=== PATIENT | male | born 1975 | race Caucasian/White ===

== ENCOUNTER 2018-05-17 13:15 | Inpatient (IN) ==
--- NOTE | 2018-05-17 13:52 | ED ---
HPI General Stated Complaint: Cold/Flu Symptoms Time Seen by Provider: 05/17/18 13:30 Source: patient Mode of arrival: EMS Limitations: other (Psychiatric condition) History of Present Illness MD complaint: Reports suicidal ideation Duration: constant History of same: Yes Relieving factors: none Exacerbating factors: none Context: Reports significant life stressor (He states that his mother has recently ) Treatments prior to arrival: Reports none Related Data Previous Rx's Medication Instructions Recorded benztropine 1 mg PO BID 30 Days #60 tab 05/04/18 famotidine 20 mg PO BID 30 Days #60 tab 05/04/18 haloperidol decanoate [Haldol 100 mg IM Q28D ml 05/04/18 Decanoate] hydroxyzine HCl 50 mg PO Q6H PRN #60 tab 05/04/18 Allergies Allergy/AdvReac Type Severity Reaction Status Date / Time chloral hydrate Allergy Severe Psychosis Verified 05/17/18 13:27 penicillin G Allergy Severe Rash, Verified 05/17/18 13:27 Generalized Review of Systems ROS: all other systems reviewed are negative [facility] Medical History Medical History Anxiety (Acute) Depression (Acute) Esophageal dilatation (Acute) Esophageal stricture (Acute) GERD (gastroesophageal reflux disease) (Acute) Schizophrenia, paranoid, chronic (Acute) Von Willebrand disease (Acute) Social History Social History Substance History: Active Abuse Second Hand Smoke Exposure: Yes Smoking Status: Current some day smoker Tobacco Type: Cigarettes How Often Do You Have a Drink Containing Alcohol: 2 to 4 times a month Recent Travel in [facility] [[email or web address] within the Last 8 Weeks: No Recent Out of Country Travel within the Last 8 Weeks: No Immunization History Tetanus Immunization: Unsure Exam Const General: cooperative, healthy appearing, comfortable, no acute distress and well developed Orientation: alert, awake and oriented x3 HENMT Head: normal to inspection, normocephalic and atraumatic Eyes Alignment and Position: alignment normal and position abnormal Conjunctivae: conjunctivae normal Sclera: sclerae normal EOM: EOM intact bilaterally Neck Neck: normal visual inspection and full ROM Chest Chest: normal inspection of the chest Resp Effort & Inspection: normal respiratory effort and able to speak in complete sentences Cardio Rate: regular rate Rhythm: regular rhythm Back/Spine/Pelvis Cervical Spine: cervical ROM normal Thoracic/Lumbar Spine: thoraco-lumbar ROM normal Skin General: no rashes or lesions noted, turgor normal and dry skin Neuro General: alert, awake, oriented x3, moves all extremities and CN's II-XI intact bilaterally Extrem General: normal to inspection and full ROM Psych Appearance: grossly normal Speech and Movement: speech and movement normal Mood: congruent mood Affect: sad Attitude: cooperative Thought Content: suicidality Course Initial Documented Vital Signs Temperature 98.3 F 05/17/18 13:27 Pulse Rate 96 H 05/17/18 13:27 Respiratory Rate 16 05/17/18 13:27 Blood Pressure 118/80 05/17/18 13:27 Pulse Oximetry 98 05/17/18 13:27 Last Documented Vital Signs Temperature 98.4 F 05/18/18 17:58 Pulse Rate 102 H 05/18/18 17:58 Respiratory Rate 18 05/18/18 17:58 Blood Pressure 137/80 05/18/18 17:58 Pulse Oximetry 98 05/18/18 17:58 Medical Decision Making [facility] Narrative Medical decision making narrative: This patient presented to us via [facility] with a chief complaint to the triage nurse of a sore throat but the chief complaint to me of suicidal ideation. This patient was just admitted to the psychiatric [facility] here at the hospital with similar complaints. He was discharged on May 04. I have ordered a medical screening exam. He will need to be seen by the psych screener. I am unable to determine if his suicidal ideation is real or if he is malingering. He is medically clear for psychiatric evaluation. Medical Screen Exam Complete: Yes Emergency Medical Condition: Yes Differential Diagnosis Differential Diagnosis: Differential diagnosis includes but is not limited to depression with suicidal gesture, suicide attempt, suicidal ideation, attention seeking behavior, malingering. Lab Data Lab results reviewed: Yes I reviewed the patient's lab results. Result diagrams: 05/17/18 13:45 05/17/18 13:45 Lab Results 05/17/18 05/17/18 05/17/18 Range/Units 13:45 13:45 14:00 WBC 11.6 H (4.0-11.0) th/mm3 RBC 5.37 (4.50-5.90) mil/mm3 Hgb 16.5 (13.0-17.0) gm/dL Hct 48.4 (39.0-51.0) % MCV 90.1 (80.0-100.0) fL MCH 30.7 (27.0-34.0) pg MCHC 34.1 (32.0-36.0) % RDW 15.1 (11.6-17.2) % Plt Count 228 D (150-450) th/mm3 MPV 9.5 (7.0-11.0) fL Neut % (Auto) 78.6 H (16.0-70.0) % Lymph % (Auto) 13.6 (9.0-44.0) % Noble % (Auto) 6.8 (0.0-8.0) % Eos % (Auto) 0.7 (0.0-4.0) % Baso % (Auto) 0.3 (0.0-2.0) % Neut # (Auto) 9.1 H (1.8-7.7) th/mm3 Lymph # (Auto) 1.6 (1.0-4.8) th/mm3 Noble # (Auto) 0.8 (0.0-0.9) th/mm3 Eos # (Auto) 0.1 (0.0-0.4) th/mm3 Baso # (Auto) 0.0 (0.0-0.2) th/mm3 WBC Differential . Differential Comment Auto diff final Sodium 140 (136-145) meq/L Potassium 3.4 L (3.5-5.1) meq/L Chloride 106 (98-107) meq/L Carbon Dioxide 26.9 (21.0-32.0) meq/L Anion Gap 7 (5-15) meq/L BUN 12 (7-18) mg/dL Creatinine 0.88 (0.60-1.30) mg/dL Estimated GFR Greater than 89 (>89) mL/min Random Glucose 77 (74-106) mg/dL Calcium 8.7 (8.5-10.1) mg/dL Magnesium 2.0 (1.5-2.5) mg/dL Total Bilirubin 0.6 (0.2-1.0) mg/dL AST 18 (15-37) U/L ALT 16 (12-78) U/L Alkaline Phosphatase 161 H (45-117) U/L Total Protein 7.7 (6.4-8.2) g/dL Albumin 3.8 (3.4-5.0) g/dL TSH 0.474 (0.358-3.740) uIU/mL Urine Opiates Screen Neg (Neg) Ur Barbiturates Screen Neg (Neg) Ur Amphetamines Screen Neg (Neg) U Benzodiazepines Scrn Neg (Neg) Urine Cocaine Screen Pos H (Neg) U Cannabinoids Screen Pos H (Neg) Serum Alcohol Less than 3 (0-5) mg/dL Discharge Plan Discharge Disposition Patient Disposition: ED Admit(ED Internal Use Only) Discharge Order Discharge Orders: ED Use Only Admit Order (Routine); Ordered 05/18/18 Ordered By: Jan Miarnda Discharge Details Diagnosis: Medical clearance for psychiatric admission Physicians Team ED Provider: Anni Claire Primary Care Provider: KAREN, Attending Provider: Grayson Harley Discharge Interventions Interventions: Vital Signs Last Done: 05/18/18 17:58 Status ED Status: Admitted Patient
[2018-05-17 14:19] LABS: Baso % (Auto) 0.3 % (0.0-2.0); Eos # (Auto) 0.1 th/mm3 (0.0-0.4); Eos % (Auto) 0.7 % (0.0-4.0); Hematocrit 48.4 % (39.0-51.0); Hemoglobin 16.5 gm/dL (13.0-17.0); Lymph # (Auto) 1.6 th/mm3 (1.0-4.8); Lymph % (Auto) 13.6 % (9.0-44.0); Mean Corpuscular HGB Conc 34.1 % (32.0-36.0); Mean Corpuscular Hemoglobin 30.7 pg (27.0-34.0); Mean Corpuscular Volume 90.1 fL (80.0-100.0); Mean Platelet Volume 9.5 fL (7.0-11.0); Mono # (Auto) 0.8 th/mm3 (0.0-0.9); Mono % (Auto) 6.8 % (0.0-8.0); Neut # (Auto) 9.1 th/mm3 (1.8-7.7); Neut % (Auto) 78.6 % (16.0-70.0); Platelet Count 228 th/mm3 (150-450); Red Blood Count 5.37 mil/mm3 (4.50-5.90); Red Cell Distribution Width 15.1 % (11.6-17.2); White Blood Count 11.6 th/mm3 (4.0-11.0)
[2018-05-17 14:41] LABS: Albumin 3.8 g/dL (3.4-5.0); Anion Gap 7 meq/L (5-15); Aspartate Aminotransferase 18 U/L (15-37); Blood Urea Nitrogen 12 mg/dL (7-18); Calcium 8.7 mg/dL (8.5-10.1); Carbon Dioxide 26.9 meq/L (21.0-32.0); Chloride 106 meq/L (98-107); Glomerular Filtration Rate Greater Than 89 mL/min (>89); Glucose,Random 77 mg/dL (74-106); Potassium 3.4 meq/L (3.5-5.1); Sodium 140 meq/L (136-145)
[2018-05-17 14:42] LABS: Alanine Aminotransferase 16 U/L (12-78)
[2018-05-17 14:46] LABS: Amphetamine Screen,Urine Neg (Neg); Barbiturate Screen,Urine Neg (Neg); Cannabinoid Screen,Urine Pos (Neg); Cocaine Screen,Urine Pos (Neg)
[2018-05-17 14:47] LABS: Opiate Screen,Urine Neg (Neg)
[2018-05-17 14:52] LABS: Alkaline Phosphatase 161 U/L (45-117); Thyroid Stimulating Hormone 0.474 uIU/mL (0.358-3.740); Total Protein 7.7 g/dL (6.4-8.2)
--- NOTE | 2018-05-18 12:46 | ED ---
HPI - Psych - General Source: patient Mode of arrival: EMS Limitations: no limitations - History of Present Illness MD complaint: suicidal ideation Duration: constant History of same: Yes Relieving factors: none Exacerbating factors: none Context: not taking psychiatric medications Associated psychiatric symptoms: depression, suicidal ideation, auditory hallucinations, visual hallucinations Associated symptoms: denies other symptoms Treatments prior to arrival: none If self harm: admits thoughts of self harm - General Stated Complaint: Cold/Flu Symptoms Time Seen by Provider: 05/17/18 13:30 - History of Present Illness HPI Narrative: The patient is a 42 years old white male who 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 The patient came to the ED and made threats of killing himself causing him to be Guido acted. This 42 years old male communicates in a childlike manner and he repeatedly made threats that he is going to kill himself by running in front of a moving car if he was sent home. Patient stated that his caregiver and mother 2 months ago and that he still grieving her . He stated that he does not like his home anymore because there are many other persons living there now and he does not get along well with them. The patient report that he was treated for paranoid schizophrenia, anxiety and he was prescribed psychotropic medications. Patient appears to be a poor historian and often times he could not give a clear account of himself or of where he was living. The patient often gets agitated and threatening to harm himself repeatedly but no suicidal gestures was observed. He reported auditory and visual hallucination but often times it appears that he is malingering. Patient's urine toxicology is positive for cocaine and marijuana. He denies chest pain or any other somatic symptoms. ( Jan Miranda) - Related Data Previous Rx's Medication Instructions Recorded benztropine 1 mg PO BID 30 Days #60 tab 05/04/18 famotidine 20 mg PO BID 30 Days #60 tab 05/04/18 haloperidol decanoate [Haldol 100 mg IM Q28D ml 05/04/18 Decanoate] hydroxyzine HCl 50 mg PO Q6H PRN #60 tab 05/04/18 Allergies Allergy/AdvReac Type Severity Reaction Status Date / Time chloral hydrate Allergy Severe Psychosis Verified 05/17/18 13:27 penicillin G Allergy Severe Rash, Verified 05/17/18 13:27 Generalized PMFSH - History History Provided By: Patient - Medical History Medical History: Medical History (Last Reviewed 05/17/18 @ 13:50 by Anni Claire) Anxiety Depression Esophageal dilatation Esophageal stricture GERD (gastroesophageal reflux disease) Schizophrenia, paranoid, chronic Von Willebrand disease - Tobacco History Second Hand Smoke Exposure: Yes Tobacco Use In Past 30 Days: Yes Smoking Status: Current some day smoker Tobacco Type: Cigarettes - Alcohol History How Often Do You Have a Drink Containing Alcohol: 2 to 4 times a month - Substance Use History Substance History: Active Abuse - Substance Use Type Marijuana Status: Active Route Used: Inhalation Alcohol Status: Active Route Used: By Mouth Frequency: OCCASIONALLY - Travel History Recent Travel in the [place] Within the Last 8 Weeks: No Recent Travel Out of the Country Within the Last 8 Weeks: No - Immunization History Tetanus Immunization: Unsure Psychiatric History - Psychiatric History Psychiatric Treatment History: History of Psychiatric Treatment, History Substance Abuse Treatment, History of Hospitalization in a Psychiatric Facility History of Inpatient Treatment: No Firearms in Home: No - Legal History Unable to verify (Jan Miranda) - Family Psychiatric History Unable to verify (Jan Miranda) Physical Exam - General Limitations: other (Psychiatric condition) Mental Status Examination Appearance: Appropriate Consciousness: Alert Orientation: x4 Motor Activity: Normal gait Speech: Unremarkable Language: Adequate Fund of Knowledge: Poor Attention and Concentration: Adequate Memory: Unremarkable Mood: Anxious, Irritable Affect: Irritable, Sad, Anxious Thought Process & Associations: Intact, Logical, Tangential Thought Content: Appropriate, Hallucinations Hallucination Type: Auditory Delusion Type: None Suicidal Plan: Yes (Plans to walk in front of a movi) Suicidal Intention: Yes Homicidal Ideation: No Homicidal Plan: No Homicidal Intention: No Insight: Poor Judgment: Impulsive Initial Documented Vital Signs Temperature 98.3 F 05/17/18 13:27 Pulse Rate 96 H 05/17/18 13:27 Respiratory Rate 16 05/17/18 13:27 Blood Pressure 118/80 05/17/18 13:27 Pulse Oximetry 98 05/17/18 13:27 Last Documented Vital Signs Temperature 98.4 F 05/18/18 17:58 Pulse Rate 102 H 05/18/18 17:58 Respiratory Rate 18 05/18/18 17:58 Blood Pressure 137/80 05/18/18 17:58 Pulse Oximetry 98 05/18/18 17:58 MDM - Psych - Diagnosis (1) Acute adjustment disorder Code(s): F43.20 - Adjustment disorder, unspecified Status: Acute (2) Acute adjustment disorder Code(s): F43.20 - Adjustment disorder, unspecified Status: Acute - Lab Data Result diagrams: 05/17/18 13:45 05/17/18 13:45 - [facility] Narrative Medical decision making narrative: Patient repeatedly voiced that he have thoughts of killing himself and that he is thinking about running out in front a moving car. He reported that he had one suicidal attempt about 10 years ago. This patient appears to to have mild mental retardation and his mother was caring for him. Patient is currently receiving Social Security disability benefits. According to patient his mother 2 months ago and is still grieving her . He stated that there are many people living at the house now some of them are relatives but he does not get along well with them, he is adamant that he does not want to go back living there. He said he prefers to stay at this hospital because this nice to hear that his home. Presently the nephrology social worker on this unit is working up his case to access what services are available to him in the community. His father who lives out of state was contacted by the nephrology social worker and he is making contact with [employer] and crm also. Patient is also referred to to this ED case management team. The fact that patient repeatedly made a threats to kill himself by running in front of a moving car if he is released. Given the present mental status of this patient and his cognitive functioning it appears unsafe to release this patient. Dr. Harley was consulted with and he agreed to have this patient admitted to the inpatient unit. (Jan Miranda) - Lab Data Lab Results 05/17/18 05/17/18 05/17/18 Range/Units 13:45 13:45 14:00 WBC 11.6 H (4.0-11.0) th/mm3 RBC 5.37 (4.50-5.90) mil/mm3 Hgb 16.5 (13.0-17.0) gm/dL Hct 48.4 (39.0-51.0) % MCV 90.1 (80.0-100.0) fL MCH 30.7 (27.0-34.0) pg MCHC 34.1 (32.0-36.0) % RDW 15.1 (11.6-17.2) % Plt Count 228 D (150-450) th/mm3 MPV 9.5 (7.0-11.0) fL Neut % (Auto) 78.6 H (16.0-70.0) % Lymph % (Auto) 13.6 (9.0-44.0) % [place] % (Auto) 6.8 (0.0-8.0) % Eos % (Auto) 0.7 (0.0-4.0) % Baso % (Auto) 0.3 (0.0-2.0) % Neut # (Auto) 9.1 H (1.8-7.7) th/mm3 Lymph # (Auto) 1.6 (1.0-4.8) th/mm3 [place] # (Auto) 0.8 (0.0-0.9) th/mm3 Eos # (Auto) 0.1 (0.0-0.4) th/mm3 Baso # (Auto) 0.0 (0.0-0.2) th/mm3 WBC Differential . Differential Comment Auto diff final Sodium 140 (136-145) meq/L Potassium 3.4 L (3.5-5.1) meq/L Chloride 106 (98-107) meq/L Carbon Dioxide 26.9 (21.0-32.0) meq/L Anion Gap 7 (5-15) meq/L BUN 12 (7-18) mg/dL Creatinine 0.88 (0.60-1.30) mg/dL Estimated GFR Greater than 89 (>89) mL/min Random Glucose 77 (74-106) mg/dL Calcium 8.7 (8.5-10.1) mg/dL Magnesium 2.0 (1.5-2.5) mg/dL Total Bilirubin 0.6 (0.2-1.0) mg/dL AST 18 (15-37) U/L ALT 16 (12-78) U/L Alkaline Phosphatase 161 H (45-117) U/L Total Protein 7.7 (6.4-8.2) g/dL Albumin 3.8 (3.4-5.0) g/dL TSH 0.474 (0.358-3.740) uIU/mL Urine Opiates Screen Neg (Neg) Ur Barbiturates Screen Neg (Neg) Ur Amphetamines Screen Neg (Neg) U Benzodiazepines Scrn Neg (Neg) Urine Cocaine Screen Pos H (Neg) U Cannabinoids Screen Pos H (Neg) Serum Alcohol Less than 3 (0-5) mg/dL
[2018-05-18] MEDS: Senna/Docusate Sodium 8.6/50 MG Tablet PO SCH (20:41)
[2018-05-18] MEDS: Aluminum/Magnesium/Simethacone Susp 30 ML UDC PO PRN (23:06)
[2018-05-19] MEDS: Senna/Docusate Sodium 8.6/50 MG Tablet PO SCH ×2 (08:12→21:57)
[2018-05-19] MEDS ORDERED: QUEtiapine 100 MG Tablet PO SCH (09:00)
[2018-05-19] MEDS: Famotidine 20 MG Tablet PO SCH ×2 (11:11→21:15)
--- NOTE | 2018-05-19 11:46 | P.HPPSY ---
Provisional Diagnosis Admission Date: May 18, 2018 17:54 [place] I.: Schizoaffective disorder depressive type Competence Certification of Person's Competence To Provide Express and Informed Consent I have personally examined Santi Camacho, a person being served at [facility] on, May 19, 2018 1145. Express and informed consent means consent voluntarily given in writing, by a competent person, after sufficient explanation and disclosure of the subject matter involved to enable the person to make a knowing and willful decision without any element of force, fraud, deceit, duress, or other form of constraint or coercion. This person is 18 years of age or older, is not now known to be incompetent to consent to treatment with a guardian advocate, and does not have a health care surrogate or proxy currently making medical treatment decisions. I have found this person to be one of the following: [xxx] Competent to provide express and informed consent, as defined above, for voluntary admission to this facility and is competent to provide express and informed consent for treatment. He/she has the consistent capacity to make well reasoned, willful, and knowing decisions concerning his or her medical or mental health treatment. The person fully and consistently understands the purpose of the admission for examination/placement and is fully capable of personally exercising all rights assured [place] Incompetent to provide express and informed consent to voluntary admission, and this is incompetent to provide express and informed consent to treatment. The person must be transferred to involuntary status and a petition for a guardian advocate filed with the Circuit Court. [] Refusing to provide express and informed consent to voluntary admission but is competent to provide express and informed consent for treatment. The person must be discharged or transferred to involuntary status. Form shall be completed within 24 hours of a person's arrival at the receiving facility and filed in the clinical record of each person: 1. Admitted on a voluntary basis 2. Permitted to provide express and informed consent to his/her own treatment 3. Allowed to transfer from involuntary to voluntary status 4. Prior to permitting a person to consent to his or her own treatment after having been previously found incompetent to consent to treatment. History of Present Illness Capacity: Has capacity Chief Complaint: Suicidal threats History of Present Illness: The patient is a 42 years old white male who 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 The patient came to the ED and made threats of killing himself causing him to be Guido acted...he repeatedly made threats that he is going to kill himself by running in front of a moving car if he was sent home. Patient stated that his caregiver and mother 2 months ago and that he still grieving her . He stated that he does not like his home anymore because there are many other persons living there now and he does not get along well with them. The patient report that he was treated for paranoid schizophrenia, anxiety and he was prescribed psychotropic medications. Patient appears to be a poor historian and often times he could not give a clear account of himself or of where he was living. The patient often gets agitated and threatening to harm himself repeatedly but no suicidal gestures was observed. He reported auditory and visual hallucination but often times it appears that he is malingering. Patient's urine toxicology is positive for cocaine and marijuana. He denies chest pain or any other somatic symptoms. The patient had been discharged from [facility] unit approximately 2 weeks ago and his discharge medications included Cogentin 1 mg take 1 tablet by mouth twice a day #60 refill 0, Atarax 50 mg take 1 by mouth up to every 8 hours as needed for anxiety or insomnia #60 refill 0, famotidine 20 mg twice a day #60 refill 0, Haldol decanoate 100 mg IM injections every 28 days with next dose due June 01, 2018. Patient admits to nonadherence with his oral medications and given his continued threats of suicide he was admitted to the psychiatric unit but under a voluntary status. Patient was seen this morning at bedside where he had returned after breakfast. He is complaining of fatigue as well as general body aches and requests continued bedrest for today. The patient is aware from previous admission the policy that he must be out of his room and in the milieu during the day with unless he has a doctor's order to remain on bedrest. Patient expressed sincere motivation to cooperate with unit rules and recommended treatment as he believes he was doing well prior to his discharge but the stress of returning to home where he did not get along with the people and it did not have running water or electricity was overwhelming for him. Patient does admit to a depressed mood that has worsened over the last 2 weeks and after discussion of risk benefits side effects alternatives he chooses to restart his previous antidepressant which was Prozac. - Inpatient Certification I certify that the inpatient services were ordered in accordance with Medicare regulations governing the order. This includes certification that hospital inpatient services are reasonable and necessary and in the case of services not specified as inpatient-only under 42 CFR 419.22(n), that they are appropriately provided as inpatient services in accordance to with the 2-midnight benchmark under 43 CFR 412.3(e) I certify that inpatient psychiatric hospital services are medically necessary. Evaluation and treatment and/or diagnostic testing are expected to improve the patient's condition. The patient needs on a daily basis, active treatment furnished directly by or requiring the supervision of inpatient psychiatric facility personnel. Estimated Total Length of Stay (Days): 7 Plans for Post Hospital Care: Home [facility] - History History Provided By: Patient - Medical History Medical History: Medical History (Last Reviewed 05/17/18 @ 13:50 by Anni Claire) Anxiety Depression Esophageal dilatation Esophageal stricture GERD (gastroesophageal reflux disease) Schizophrenia, paranoid, chronic Von Willebrand disease - Social History I have reviewed the patient's Social History: Yes - Tobacco History Second Hand Smoke Exposure: No Tobacco Use In Past 30 Days: Yes Smoking Status: Current every day smoker Tobacco Type: Cigarettes - Alcohol History How Often Do You Have a Drink Containing Alcohol: 2 to 4 times a month - Substance Use History Substance History: Active Abuse - Substance Use Type Marijuana Type: denies but uds is positive Status: Active Route Used: Inhalation Alcohol Status: Active Route Used: By Mouth Frequency: twice a month Reason for Use: Fit In Crack/Cocaine Type: denies but uds is positive Status: Active Route Used: By Mouth - Travel History Recent Travel in the [place] Within the Last 8 Weeks: No Recent Travel Out of the Country Within the Last 8 Weeks: No - Immunization History Tetanus Immunization: Unsure Medications and Allergies Active Medications: Active Medications Al Hydrox/Mg Hydrox/Simethicone (Mag-Al Plus Susp Liq) 30 ml PO Q6H PRN PRN Reason: DYSPEPSIA Last Admin: 05/18/18 23:06 Dose: 30 ml Al Hydroxide/Mg Hydroxide (Milk Of Magnesia Liq) 30 ml PO Q12H PRN PRN Reason: Mild Constipation Benztropine Mesylate (Cogentin) 1 mg PO BID DEBBIE Famotidine (Pepcid) 20 mg PO BID COUNT INCLUDES THE [facility] Last Admin: 05/19/18 11:11 Dose: 20 mg Fluoxetine HCl (Prozac) 20 mg PO DAILY COUNT INCLUDES THE [facility] Hydroxyzine HCl (Atarax) 50 mg PO Q6H PRN PRN Reason: Anxiety or insomnia Senna/Docusate Sodium (Veronique-Colace) 1 tab PO BID COUNT INCLUDES THE [facility] Last Admin: 05/19/18 08:12 Dose: Not Given Allergies Allergy/AdvReac Type Severity Reaction Status Date / Time chloral hydrate Allergy Severe Psychosis Verified 05/17/18 13:27 penicillin G Allergy Severe Rash, Verified 05/17/18 13:27 Generalized Results - Labs CBC & Chem 7: 05/17/18 13:45 05/17/18 13:45 Exam Vital signs: Vital Signs 05/18/18 12:47 05/18/18 17:58 05/18/18 19:35 Temperature 98.6 F 98.4 F 99.1 F Pulse Rate 106 H 102 H 96 H Respiratory Rate 18 18 18 Blood Pressure 128/81 137/80 138/88 Pulse Oximetry 97 98 96 05/19/18 05:45 Temperature 98.3 F Pulse Rate 65 Respiratory Rate 14 Blood Pressure 110/68 Pulse Oximetry 95 Intake & Output 05/18/18 05/19/18 05/19/18 18:59 06:59 18:59 Weight 61.1 kg Other: Weight On Admission 61.1 kg Mental Status Examination Appearance: Appropriate Consciousness: Alert Orientation: x4 Motor Activity: Normal gait Speech: Unremarkable Language: Adequate Fund of Knowledge: Poor Attention and Concentration: Adequate Memory: Unremarkable Mood: Anxious, Irritable Affect: Irritable, Sad, Anxious Thought Process & Associations: Intact, Logical, Tangential Thought Content: Appropriate Hallucination Type: None (Denies any this morning) Delusion Type: None Suicidal Ideation: Yes (Passive) Homicidal Ideation: No Homicidal Plan: No Homicidal Intention: No Insight: Poor Judgment: Impulsive Assessment and Plan - Assessment (1) Schizoaffective disorder, depressive type Code(s): F25.1 - Schizoaffective disorder, depressive type Status: Acute (2) Cocaine abuse Code(s): F14.10 - Cocaine abuse, uncomplicated Status: Acute - Plan Plan: 1. Continue with admission to inpatient psychiatry at [facility]; voluntary /competent legal status. 2. Routine unit precautions. 3. Comfort medications ordered for as needed treatment of constipation, heartburn, diarrhea, and mild pain. 4. Hydroxyzine 50mg po q6H prn anxiety/insomnia. 5. Restart Cogentin 1 mg twice a day. 6. Anticipate subsequent Haldol decanoate shot to be given as planned at the end of the month. Will consider oral Haldol if symptoms of psychosis return during this admission. 7. Start famotidine 20 mg twice a day for complaints of gastroesophageal reflux. 8. Start Ensure supplements with each meal. 9. Patient will participate in the unit programming to include group therapies , milieu therapy and recreational therapies. 10. Discharge planning: Unit director social welfare will assist patient and finding safer and more supportive living environment but the patient currently is refusing consideration for a substance use treatment program. 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 The patient is expressing a strong motivation to for psychiatric admission and willingness to cooperate with treatment and indicating an understanding of the risk benefits and side effects of these treatments therefore he will be restarted on his previous discharge medications and Prozac will be restarted as well as this has been an effective treatment for his mood and anxiety in the past.
[2018-05-19] MEDS: LORazepam 1 MG Tablet PO PRN (14:33)
[2018-05-20] MEDS: Senna/Docusate Sodium 8.6/50 MG Tablet PO SCH ×2 (08:15→20:28)
[2018-05-20] MEDS: Famotidine 20 MG Tablet PO SCH ×2 (08:16→20:28)
[2018-05-20] MEDS: FLUoxetine 20 MG Capsule PO SCH (08:16)
--- NOTE | 2018-05-20 11:55 | P.PNPSY ---
Subjective Chief Complaint: Suicidal threats Remarks: Patient seen for follow-up, chart reviewed, patient discussed with nursing staff ; we reviewed the patient's mood, thoughts, and behaviors from overnight and this morning. Nurse reports the patient slept 5 hours overnight. But he has been napping throughout the day. He also has been going to groups intermittently. He had an episode of vomiting overnight which was attributed to increased anxiety as well as coughing. Patient's anxiety was not relieved with Atarax and he was given Ativan for severe anxiety with good effect. Nurse reports the patient is complained of auditory hallucinations. Patient was seen at bedside after breakfast where he had return for a nap. Patient was easy to awaken. He reports "I am not doing well I want to kill myself." Patient was asked about active suicidal ideations or intent while in the hospital and he denies and reports having thoughts that if he were to be discharged she would jump in front of a car. We discussed her treatment plan and he was provided empathic support and he expressed feeling more reassured that he will get the help he needs prior to being discharged. On further clarification with his auditory hallucinations, the patient continues to endorse them as his own inner voice but the thoughts are sometimes intrusive and ego-dystonic and definitely cause him anxiety and sadness. Mental Status Examination Appearance: Appropriate Consciousness: Alert Orientation: x4 Motor Activity: Normal gait Speech: Unremarkable Language: Adequate Fund of Knowledge: Poor Attention and Concentration: Adequate Memory: Unremarkable Mood: Anxious, Irritable Affect: Irritable, Sad, Anxious Thought Process & Associations: Intact, Logical Thought Content: Appropriate, Obsessions Hallucination Type: None (Denies any this morning) Delusion Type: None Suicidal Ideation: Yes (Passive) Suicidal Plan: Yes (Plans to walk in front of a movi) Suicidal Intention: No Homicidal Ideation: No Homicidal Plan: No Homicidal Intention: No Insight: Poor Judgment: Impulsive Assessment and Plan - Assessment (1) Schizoaffective disorder, depressive type Code(s): F25.1 - Schizoaffective disorder, depressive type Status: Acute (2) Cocaine abuse Code(s): F14.10 - Cocaine abuse, uncomplicated Status: Acute - Plan Plan: 1. Continue with admission to inpatient psychiatry at [facility]; voluntary /competent legal status. 2. Routine unit precautions. 3. Comfort medications ordered for as needed treatment of constipation, heartburn, diarrhea, and mild pain. 4. Hydroxyzine 50mg po q6H prn anxiety/insomnia. 5. Restart Cogentin 1 mg twice a day. 6. Anticipate subsequent Haldol decanoate shot to be given as planned at the end of the month. Will consider oral Haldol if symptoms of psychosis return during this admission. 7. Start famotidine 20 mg twice a day for complaints of gastroesophageal reflux. 8. Start Ensure supplements with each meal. 9. Patient will participate in the unit programming to include group therapies , milieu therapy and recreational therapies. 10. Discharge planning: Unit family welfare social work professor will assist patient and finding safer and more supportive living environment but the patient currently is refusing consideration for a substance use treatment program. Estimated LOS: 7 days May 20, 2018: Unsatisfactory response to treatment; the patient continues to complain of suicidal ideations with plan if he were to be discharged and he continues to express internal torment by intrusive thoughts or obsessions. The patient was given a Haldol decanoate shot approximately 2 weeks ago but his recent use of cocaine probably exacerbated his worsening mood and thoughts therefore adjunctive treatment with additional Haldol is recommended in addition to the restart of his antidepressant. Continue inpatient psychiatric treatment stabilization, voluntary status. Continue Prozac 20 mg a day for treatment of anxiety and depression. Continue Atarax and Ativan as needed for mild to severe anxiety. Add Haldol 2 mg twice a day for adjunctive treatment of mood and thought disorder. Start guanfacine 600 mg ER twice a day for congestion length of treatment 2 days then discontinue. Start Tessalon Perles 100 mg 3 times a day as needed for throat irritation and cough. Discharge planning: The patient has indicated that homelessness is a major risk factor for his suicidal behavior therefore this will need to be mitigated prior to discharge. Justification for Continued Inpatient Stay: Patient remains an elevated risk for self-harm by self neglect and self injury by walking in front of traffic and therefore will require further inpatient stabilization and preparation of a safe discharge plan. Moving patient to a less restrictive environment at this time may result in decompensation.
[2018-05-20] MEDS: guaiFENesin 600 MG ER Tablet PO SCH ×2 (13:25→20:28)
[2018-05-20] MEDS: Haloperidol 5 MG Tablet PO SCH ×2 (14:16→20:27)
[2018-05-20] MEDS: Benzonatate 100 MG Capsule PO PRN (16:21)
[2018-05-21] MEDS: Benzonatate 100 MG Capsule PO PRN (08:16)
[2018-05-21] MEDS: Haloperidol 5 MG Tablet PO SCH ×2 (08:16→21:03)
[2018-05-21] MEDS: guaiFENesin 600 MG ER Tablet PO SCH (08:17)
[2018-05-21] MEDS: Famotidine 20 MG Tablet PO SCH ×2 (08:17→21:03)
[2018-05-21] MEDS: FLUoxetine 20 MG Capsule PO SCH (08:17)
[2018-05-21] MEDS: Senna/Docusate Sodium 8.6/50 MG Tablet PO SCH ×2 (08:17→21:02)
--- NOTE | 2018-05-21 11:56 | P.PNPSY ---
Subjective Chief Complaint: Suicidal threats Remarks: Patient seen for follow-up, chart reviewed, patient discussed with nursing staff ; we reviewed the patient's mood, thoughts, and behaviors from overnight and this morning. Nurse reports the patient was restless overnight related to coughing and one episode of vomitus. He seemed to get about 5 hours of rest. He has been med compliant and denied active suicidal or homicidal ideations with the nurses. Patient seen at bedside after breakfast where he was sleeping and difficult to awake. Provider returned for lunch and the patient was able to wake up and discuss his care. He tells the provider "I still want to kill myself." He denies any active plans and is willing to contract for safety. He complains of general malaise associated with his continued cough and complaints of feeling his congestion in his chest. Patient expressed concerns about being discharged to the streets feeling sick and suicidal and he was reassured that we will continue to stabilize as an inpatient. He denies improvement in mood or anxiety since the addition of Haldol yesterday but he also denies any side effects of worsening of his condition. Mental Status Examination Appearance: Appropriate Consciousness: Alert Orientation: x4 Motor Activity: Normal gait Speech: Unremarkable Language: Adequate Fund of Knowledge: Poor Attention and Concentration: Adequate Memory: Unremarkable Mood: Anxious, Irritable Affect: Irritable, Sad, Anxious Thought Process & Associations: Intact, Logical Thought Content: Appropriate, Obsessions (He describes intrusive thoughts that are irrational and illogical) Hallucination Type: None (Denies any this morning) Delusion Type: None Suicidal Ideation: Yes (Passive) Suicidal Plan: Yes (Plans to walk in front of a movi) Suicidal Intention: No Homicidal Ideation: No Homicidal Plan: No Homicidal Intention: No Insight: Poor Judgment: Impulsive Assessment and Plan - Assessment (1) Schizoaffective disorder, depressive type Code(s): F25.1 - Schizoaffective disorder, depressive type Status: Acute (2) Cocaine abuse Code(s): F14.10 - Cocaine abuse, uncomplicated Status: Acute - Plan Plan: 1. Continue with admission to inpatient psychiatry at [facility]; voluntary /competent legal status. 2. Routine unit precautions. 3. Comfort medications ordered for as needed treatment of constipation, heartburn, diarrhea, and mild pain. 4. Hydroxyzine 50mg po q6H prn anxiety/insomnia. 5. Restart Cogentin 1 mg twice a day. 6. Anticipate subsequent Haldol decanoate shot to be given as planned at the end of the month. Will consider oral Haldol if symptoms of psychosis return during this admission. 7. Start famotidine 20 mg twice a day for complaints of gastroesophageal reflux. 8. Start Ensure supplements with each meal. 9. Patient will participate in the unit programming to include group therapies , milieu therapy and recreational therapies. 10. Discharge planning: Unit social and political studies professor will assist patient and finding safer and more supportive living environment but the patient currently is refusing consideration for a substance use treatment program. Estimated LOS: 7 days May 20, 2018: Unsatisfactory response to treatment; the patient continues to complain of suicidal ideations with plan if he were to be discharged and he continues to express internal torment by intrusive thoughts or obsessions. The patient was given a Haldol decanoate shot approximately 2 weeks ago but his recent use of cocaine probably exacerbated his worsening mood and thoughts therefore adjunctive treatment with additional Haldol is recommended in addition to the restart of his antidepressant. Continue inpatient psychiatric treatment stabilization, voluntary status. Continue Prozac 20 mg a day for treatment of anxiety and depression. Continue Atarax and Ativan as needed for mild to severe anxiety. Add Haldol 2 mg twice a day for adjunctive treatment of mood and thought disorder. Start guanfacine 600 mg ER twice a day for congestion length of treatment 2 days then discontinue. Start Tessalon Perles 100 mg 3 times a day as needed for throat irritation and cough. Discharge planning: The patient has indicated that homelessness is a major risk factor for his suicidal behavior therefore this will need to be mitigated prior to discharge. May 21, 2018: Unsatisfactory response to treatment, the patient remains actively suicidal but he is contracted for safety and cooperative with care. He seems to be tolerating his medications but will require more time to reach therapeutic efficacy. His worsening cough and congestion is concerning as he is spending a lot of time in bed therefore a chest x-ray will be ordered to rule out bronchitis or pneumonia. Continue inpatient psychiatric treatment and stabilization, voluntary status. Continue current medication regimen unchanged. Discharge planning: The patient will require assistance in finding alf as well as outpatient psychiatric follow-up. Anticipate discharge early next week. Justification for Continued Inpatient Stay: Patient remains an elevated risk for self-harm by self neglect and suicide and will require further inpatient stabilization and preparation of a safe discharge plan. Moving patient to a less restrictive environment at this time may result in decompensation.
--- NOTE | 2018-05-21 13:35 | XR ---
EXAM DATE: 05/21/2018 1:31 PM EST AGE/SEX: 42 years / Male INDICATIONS: Congestioni CLINICAL DATA: This is the patient's initial encounter. Patient reports that signs and symptoms have been present for 1 day and indicates a pain score of 0/10. MEDICAL/SURGICAL HISTORY: None. None. COMPARISON: No prior exams available for comparison. FINDINGS: A single AP view of the chest demonstrates the lungs to be symmetrically aerated without evidence of mass, infiltrate or effusion. The cardiomediastinal contours are unremarkable. Osseous structures a re intact. CONCLUSION: 1. No acute cardiopulmonary disease. Electronically signed by: Rajesh Manzano MD Board Certified Radiologist 05/21/2018 1:33 PM EST
[2018-05-21] MEDS: LORazepam 1 MG Tablet PO PRN (22:17)
[2018-05-22] MEDS: Aluminum/Magnesium/Simethacone Susp 30 ML UDC PO PRN (08:00)
[2018-05-22] MEDS: Benzonatate 100 MG Capsule PO PRN (08:00)
[2018-05-22] MEDS: Haloperidol 5 MG Tablet PO SCH ×2 (08:00→20:47)
[2018-05-22] MEDS: Famotidine 20 MG Tablet PO SCH ×2 (08:00→20:46)
[2018-05-22] MEDS: Senna/Docusate Sodium 8.6/50 MG Tablet PO SCH ×2 (08:00→20:46)
[2018-05-22] MEDS: FLUoxetine 20 MG Capsule PO SCH (08:00)
--- NOTE | 2018-05-22 11:50 | P.PNPSY ---
Subjective Chief Complaint: Suicidal threats Remarks: Patient seen for follow-up, chart reviewed, patient discussed with nursing staff ; we reviewed the patient's mood, thoughts, and behaviors from overnight and this morning. Nurse reports the patient slept approximately 5 hours overnight and once again complained of vomiting up his mucus. He is described as anxious and worried about discharge. He admits to cocaine addiction and lacks insight or motivation for recovery. The patient was seen up and out of bed and mingling within the milieu. He complains of continued congestion but denies nausea today. He was reassured by negative chest x-ray. He was reassured by recommendation that he remain inpatient over the weekend to allow his new medications to stabilize. The patient expressed a desire to move to [place] but when asked what connections he had to [place] he was not able to give a logical explanation. Patient denies auditory or visual hallucinations at this time he denies suicidal ideations. Mental Status Examination Appearance: Appropriate Consciousness: Alert Orientation: x4 Motor Activity: Normal gait Speech: Unremarkable Language: Adequate Fund of Knowledge: Poor Attention and Concentration: Adequate Memory: Unremarkable Mood: Anxious, Irritable Affect: Sad, Anxious Thought Process & Associations: Intact, Logical Thought Content: Appropriate, Obsessions (He describes intrusive thoughts that are irrational and illogical) Hallucination Type: None (Denies any this morning) Delusion Type: None Suicidal Ideation: Yes (Passive) Suicidal Intention: No Homicidal Ideation: No Homicidal Plan: No Homicidal Intention: No Insight: Poor Judgment: Impulsive Assessment and Plan - Assessment (1) Schizoaffective disorder, depressive type Code(s): F25.1 - Schizoaffective disorder, depressive type Status: Acute (2) Cocaine abuse Code(s): F14.10 - Cocaine abuse, uncomplicated Status: Acute - Plan Plan: 1. Continue with admission to inpatient psychiatry at [facility]; voluntary /competent legal status. 2. Routine unit precautions. 3. Comfort medications ordered for as needed treatment of constipation, heartburn, diarrhea, and mild pain. 4. Hydroxyzine 50mg po q6H prn anxiety/insomnia. 5. Restart Cogentin 1 mg twice a day. 6. Anticipate subsequent Haldol decanoate shot to be given as planned at the end of the month. Will consider oral Haldol if symptoms of psychosis return during this admission. 7. Start famotidine 20 mg twice a day for complaints of gastroesophageal reflux. 8. Start Ensure supplements with each meal. 9. Patient will participate in the unit programming to include group therapies , milieu therapy and recreational therapies. 10. Discharge planning: Unit aids social worker will assist patient and finding safer and more supportive living environment but the patient currently is refusing consideration for a substance use treatment program. Estimated LOS: 7 days May 20, 2018: Unsatisfactory response to treatment; the patient continues to complain of suicidal ideations with plan if he were to be discharged and he continues to express internal torment by intrusive thoughts or obsessions. The patient was given a Haldol decanoate shot approximately 2 weeks ago but his recent use of cocaine probably exacerbated his worsening mood and thoughts therefore adjunctive treatment with additional Haldol is recommended in addition to the restart of his antidepressant. Continue inpatient psychiatric treatment stabilization, voluntary status. Continue Prozac 20 mg a day for treatment of anxiety and depression. Continue Atarax and Ativan as needed for mild to severe anxiety. Add Haldol 2 mg twice a day for adjunctive treatment of mood and thought disorder. Start guanfacine 600 mg ER twice a day for congestion length of treatment 2 days then discontinue. Start Tessalon Perles 100 mg 3 times a day as needed for throat irritation and cough. Discharge planning: The patient has indicated that homelessness is a major risk factor for his suicidal behavior therefore this will need to be mitigated prior to discharge. May 21, 2018: Unsatisfactory response to treatment, the patient remains actively suicidal but he is contracted for safety and cooperative with care. He seems to be tolerating his medications but will require more time to reach therapeutic efficacy. His worsening cough and congestion is concerning as he is spending a lot of time in bed therefore a chest x-ray will be ordered to rule out bronchitis or pneumonia. Continue inpatient psychiatric treatment and stabilization, voluntary status. Continue current medication regimen unchanged. Discharge planning: The patient will require assistance in finding detention as well as outpatient psychiatric follow-up. Anticipate discharge early next week. May 22, 2018: Fair response to treatment, the patient appears to have an improved affect and he is less isolative but continuing to complain of passive suicidal ideations and. He has tolerated the medication changes and has not been overly sedated from the addition of Haldol. Continue current inpatient psychiatric treatment and stabilization, voluntary status. Medications unchanged. Anticipate discharge early next week; the patient would prefer not to return to his family's home but his options are likely limited. Justification for Continued Inpatient Stay: Patient remains an elevated risk for self-harm by self neglect and and relapse of drug use and a return of suicidal behaviors and therefore will require further inpatient stabilization and preparation of a safe discharge plan. Moving patient to a less restrictive environment at this time may result in decompensation.
[2018-05-23] MEDS: Haloperidol 5 MG Tablet PO SCH ×2 (08:55→21:18)
[2018-05-23] MEDS: Famotidine 20 MG Tablet PO SCH ×2 (08:56→21:19)
[2018-05-23] MEDS: Senna/Docusate Sodium 8.6/50 MG Tablet PO SCH ×2 (08:56→21:19)
[2018-05-23] MEDS: FLUoxetine 20 MG Capsule PO SCH (08:56)
--- NOTE | 2018-05-23 16:36 | P.PNPSY ---
Subjective Chief Complaint: Suicidal threats Remarks: Reviewed electronic medical records and discussed case with staff. Follow-up was conducted in the exam room with any, SPINNING DOFFER present. Patient states "I am doing good". Goes on to say that he is having suicidal ideations but that he would "wait until I leave a jump in front of a car". States that he sleeping good and that his appetite's been good. When asked again if he is has any intent to harm himself he reports, "I am confused I do not know what to do". His affect is somewhat flat but he is cooperative and pleasant throughout the interview. He is requesting a long-acting injectable. He is denying any side effects from his medications. Mental Status Examination Appearance: Appropriate Consciousness: Alert Orientation: x4 Motor Activity: Normal gait Speech: Unremarkable Language: Adequate Fund of Knowledge: Poor Attention and Concentration: Adequate Memory: Unremarkable Mood: Anxious, Irritable Affect: Sad, Anxious Thought Process & Associations: Intact, Logical Thought Content: Appropriate, Obsessions (He describes intrusive thoughts that are irrational and illogical) Hallucination Type: None (Denies any this morning) Delusion Type: None Suicidal Ideation: Yes (Passive) Suicidal Plan: Yes (Plans to walk in front of a movi) Suicidal Intention: No Homicidal Ideation: No Homicidal Plan: No Homicidal Intention: No Insight: Poor Judgment: Impulsive Assessment and Plan - Assessment (1) Schizoaffective disorder, depressive type Code(s): F25.1 - Schizoaffective disorder, depressive type Status: Acute (2) Cocaine abuse Code(s): F14.10 - Cocaine abuse, uncomplicated Status: Acute - Plan Plan: Patient will be reevaluated by the attending psychiatrist. Continue with current treatment plan. Justification for Continued Inpatient Stay: Moving this patient to a less restrictive environment would likely result in decompensation.
[2018-05-23] MEDS: LORazepam 1 MG Tablet PO PRN (21:18)
[2018-05-23] MEDS: Aluminum/Magnesium/Simethacone Susp 30 ML UDC PO PRN (22:51)
[2018-05-24] MEDS: FLUoxetine 20 MG Capsule PO SCH (08:46)
[2018-05-24] MEDS: Haloperidol 5 MG Tablet PO SCH ×2 (08:46→21:03)
[2018-05-24] MEDS: Senna/Docusate Sodium 8.6/50 MG Tablet PO SCH ×2 (08:47→21:03)
[2018-05-24] MEDS: Famotidine 20 MG Tablet PO SCH ×2 (08:47→21:03)
--- NOTE | 2018-05-24 12:19 | P.PNPSY ---
Subjective Chief Complaint: Suicidal threats Remarks: Reviewed electronic medical record and discussed with nursing staff. Rounded with ROBERT Calzada. Patient is in his room with the covers over his head. He endorses that he is still suicidal and when discharged he wants to jump in front of a car. He feels safe while in the hospital. He is asking for cough medicine and throat lozenges. Nursing reports that he vomited this morning. He also had a nose bleed, patient describes as a small amount of blood on a tissue. He is seclusive and encouraged to spend more time out of his room and to move around to decrease likelihood of his cold progressing. Review of Systems All other systems reviewed negative except as stated in HPI Mental Status Examination Appearance: Appropriate Consciousness: Alert Orientation: x4 Motor Activity: Normal gait Speech: Unremarkable Language: Adequate Fund of Knowledge: Poor Attention and Concentration: Adequate Memory: Unremarkable Mood: Anxious, Irritable Affect: Sad, Anxious Thought Process & Associations: Intact, Logical Thought Content: Appropriate, Obsessions (He describes intrusive thoughts that are irrational and illogical) Hallucination Type: None (Denies any this morning) Delusion Type: None Suicidal Ideation: Yes (Passive) Suicidal Plan: Yes (Plans to walk in front of a movi) Suicidal Intention: No Homicidal Ideation: No Homicidal Plan: No Homicidal Intention: No Insight: Poor Judgment: Impulsive Assessment and Plan - Assessment (1) Schizoaffective disorder, depressive type Code(s): F25.1 - Schizoaffective disorder, depressive type Status: Acute (2) Cocaine abuse Code(s): F14.10 - Cocaine abuse, uncomplicated Status: Acute - Plan Plan: Patient will be reevaluated by the attending psychiatrist. Continue with current treatment plan. Justification for Continued Inpatient Stay: Moving patient to a less restrictive environment may result in his decompensation.
[2018-05-24] MEDS ORDERED: guaiFENesin/Dextromethorphan 200 MG/20 MG 10 ML UDC PO ONE (13:00)
[2018-05-24] MEDS ORDERED: Menthol 5.8 MG Lozenge BUCCAL ONE (13:00)
[2018-05-25] MEDS: Haloperidol 5 MG Tablet PO SCH ×2 (08:38→20:47)
[2018-05-25] MEDS: Senna/Docusate Sodium 8.6/50 MG Tablet PO SCH ×2 (08:40→20:50)
[2018-05-25] MEDS: FLUoxetine 20 MG Capsule PO SCH (08:40)
[2018-05-25] MEDS: Famotidine 20 MG Tablet PO SCH ×2 (08:40→20:47)
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
[2018-05-25 15:17] VITALS: RESP 18
[2018-05-25] MEDS: Benzonatate 100 MG Capsule PO PRN (20:47)
[2018-05-26] MEDS: Haloperidol 5 MG Tablet PO SCH ×2 (08:36→20:26)
[2018-05-26] MEDS: FLUoxetine 20 MG Capsule PO SCH (08:37)
[2018-05-26] MEDS: Famotidine 20 MG Tablet PO SCH ×2 (08:37→20:26)
[2018-05-26] MEDS: Senna/Docusate Sodium 8.6/50 MG Tablet PO SCH ×2 (08:37→20:27)
--- NOTE | 2018-05-26 08:52 | P.TTN ---
- Patient Problems Problems: 1. Discharge planning 2. Medication compliance 3. Knowledge deficit 4. Lack of coping skills - Progress Toward Goals Provider Present: Other Provider Input: 05/26/18 Patient continues to present delusional, grandiose, med compliant. continue treatment Nurse Input: 05/26/18 Patient is med compliant, isolates, eating and sleeping well. Psychiatric Counselors Present: Talia Truong [facility] Psychiatric Therapist Input: 05/26/18 Patient is still presenting with grandiose , delusional content. Patient's speech is disorganized, illogical. Patient is med compliant. Patient will return home when discharged. Patient Equipment Maintenance Tech Abdi Rhoades is assisting patient. Group Spec/RT/OT/DWYER Present: YULIYA Johnson Group Spec/RT/OT/DWYER Input: 05/26/18 Patient refuses group - Documentation Teaching Recipient: Patient
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
[2018-05-27] MEDS: Haloperidol 5 MG Tablet PO SCH ×2 (08:46→20:25)
[2018-05-27] MEDS: Senna/Docusate Sodium 8.6/50 MG Tablet PO SCH ×2 (08:46→20:25)
[2018-05-27] MEDS: Famotidine 20 MG Tablet PO SCH ×2 (08:46→20:26)
[2018-05-27] MEDS: FLUoxetine 20 MG Capsule PO SCH (08:46)
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
[2018-05-28 06:23] VITALS: BP 138/90; PULSE 90; TEMP 98.4; O2SAT 96
[2018-05-28] MEDS: Famotidine 20 MG Tablet PO SCH (08:25)
[2018-05-28] MEDS: Haloperidol 5 MG Tablet PO SCH (08:26)
[2018-05-28] MEDS: Senna/Docusate Sodium 8.6/50 MG Tablet PO SCH (08:26)
[2018-05-28] MEDS: FLUoxetine 20 MG Capsule PO SCH (08:26)
[2018-05-28] MEDS ORDERED: Haloperidol Decanoate Inj 50 MG/ML Ampul IM SCH (08:30)
--- NOTE | 2018-05-28 12:18 | P.DSPSY ---
Psychiatry Discharge Summary Inpatient Psychiatric care?: Yes Advance Directives: No Mental Health Advance Directive: No Health Care Proxy: No - Admission Admission Date: May 18, 2018 17:54 Brief History: The patient is a 42 years old white male who 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 The patient came to the ED and made threats of killing himself causing him to be Guido acted...he repeatedly made threats that he is going to kill himself by running in front of a moving car if he was sent home. Patient stated that his caregiver and mother 2 months ago and that he still grieving her . He stated that he does not like his home anymore because there are many other persons living there now and he does not get along well with them. The patient report that he was treated for paranoid schizophrenia, anxiety and he was prescribed psychotropic medications. Patient appears to be a poor historian and often times he could not give a clear account of himself or of where he was living. The patient often gets agitated and threatening to harm himself repeatedly but no suicidal gestures was observed. He reported auditory and visual hallucination but often times it appears that he is malingering. Patient's urine toxicology is positive for cocaine and marijuana. He denies chest pain or any other somatic symptoms. The patient had been discharged from [facility] approximately 2 weeks ago and his discharge medications included Cogentin 1 mg take 1 tablet by mouth twice a day #60 refill 0, Atarax 50 mg take 1 by mouth up to every 8 hours as needed for anxiety or insomnia #60 refill 0, famotidine 20 mg twice a day #60 refill 0, Haldol decanoate 100 mg IM injections every 28 days with next dose due June 01, 2018. Patient admits to nonadherence with his oral medications and given his continued threats of suicide he was admitted to the psychiatric unit but under a voluntary status. Patient was seen this morning at bedside where he had returned after breakfast. He is complaining of fatigue as well as general body aches and requests continued bedrest for today. The patient is aware from previous admission the policy that he must be out of his room and in the milieu during the day with unless he has a doctor's order to remain on bedrest. Patient expressed sincere motivation to cooperate with unit rules and recommended treatment as he believes he was doing well prior to his discharge but the stress of returning to home where he did not get along with the people and it did not have running water or electricity was overwhelming for him. Patient does admit to a depressed mood that has worsened over the last 2 weeks and after discussion of risk benefits side effects alternatives he chooses to restart his previous antidepressant which was Prozac. Tobacco Use In Past 30 Days: Yes How Often Do You Have a Drink Containing Alcohol: 2 to 4 times a month Hospital Course: Initial treatment plan 1. Continue with admission to inpatient psychiatry at [facility]; voluntary /competent legal status. 2. Routine unit precautions. 3. Comfort medications ordered for as needed treatment of constipation, heartburn, diarrhea, and mild pain. 4. Hydroxyzine 50mg po q6H prn anxiety/insomnia. 5. Restart Cogentin 1 mg twice a day. 6. Anticipate subsequent Haldol decanoate shot to be given as planned at the end of the month. Will consider oral Haldol if symptoms of psychosis return during this admission. 7. Start famotidine 20 mg twice a day for complaints of gastroesophageal reflux. 8. Start Ensure supplements with each meal. 9. Patient will participate in the unit programming to include group therapies , milieu therapy and recreational therapies. 10. Discharge planning: Unit social work professor will assist patient and finding safer and more supportive living environment but the patient currently is refusing consideration for a substance use treatment program. Estimated LOS: 7 days May 20, 2018: Unsatisfactory response to treatment; the patient continues to complain of suicidal ideations with plan if he were to be discharged and he continues to express internal torment by intrusive thoughts or obsessions. The patient was given a Haldol decanoate shot approximately 2 weeks ago but his recent use of cocaine probably exacerbated his worsening mood and thoughts therefore adjunctive treatment with additional Haldol is recommended in addition to the restart of his antidepressant. Continue inpatient psychiatric treatment stabilization, voluntary status. Continue Prozac 20 mg a day for treatment of anxiety and depression. Continue Atarax and Ativan as needed for mild to severe anxiety. Add Haldol 2 mg twice a day for adjunctive treatment of mood and thought disorder. Start guanfacine 600 mg ER twice a day for congestion length of treatment 2 days then discontinue. Start Tessalon Perles 100 mg 3 times a day as needed for throat irritation and cough. Discharge planning: The patient has indicated that homelessness is a major risk factor for his suicidal behavior therefore this will need to be mitigated prior to discharge. May 21, 2018: Unsatisfactory response to treatment, the patient remains actively suicidal but he is contracted for safety and cooperative with care. He seems to be tolerating his medications but will require more time to reach therapeutic efficacy. His worsening cough and congestion is concerning as he is spending a lot of time in bed therefore a chest x-ray will be ordered to rule out bronchitis or pneumonia. Continue inpatient psychiatric treatment and stabilization, voluntary status. Continue current medication regimen unchanged. Discharge planning: The patient will require assistance in finding custodial as well as outpatient psychiatric follow-up. Anticipate discharge early next week. May 22, 2018: Fair response to treatment, the patient appears to have an improved affect and he is less isolative but continuing to complain of passive suicidal ideations and. He has tolerated the medication changes and has not been overly sedated from the addition of Haldol. Continue current inpatient psychiatric treatment and stabilization, voluntary status. Medications unchanged. Anticipate discharge early next week; the patient would prefer not to return to his family's home but his options are likely limited. May 25, 2018: Fair response to treatment, the patient is reporting decreased intensity and frequency of his intrusive thoughts and he has been able to maintain his frustration tolerance despite severe stressors on the unit. He continues to endorse suicidal ideations if discharged but he also acknowledges positive hope for a discharge plan this week in which she would relocate himself [place] where he has other family and friends. Continue inpatient psychiatric treatment and stabilization, medications unchanged as he is progressing in treatment. Patient will be due for another long-acting injectable dose of Haldol by the end of this month. Discharge planning: Patient will need follow-up with outpatient psychiatry but his current stressor and risk for relapse is an uncertain housing situation which will need to be addressed in order to secure a safe discharge. May 26, 2018: Fair response to treatment but patient continues to experience mild disorganized thoughts and obsessive ruminations about uncertainties and this leads to continued passive suicidal ideations and he is sedation if moved to a less restrictive environment. Continue inpatient psychiatric treatment and stabilization Continue Haldol long-acting injectable 100 mg every month next dose at the end of this month. Increase oral Haldol to 5 mg twice a day for treatment of disorganized thoughts and obsessive ruminations. Discharge planning: Patient will need follow-up with outpatient psychiatry but his current stressor and risk for relapse is an uncertain housing situation which will need to be addressed in order to secure a safe discharge. May 27, 2018: Fair response to treatment as the patient's thought processes seem more organized and he is admitting to improvement in his ability to ignore or control his obsessive thinking. He is denying active suicidal or homicidal ideations. Is concerned for the safety of his living situation seems reasonable and he is no longer asking for a bus ticket to [place] therefore we will set a goal of discharge home tomorrow with discharge follow-up within 1 week with his current outpatient mental health clinic. Continue inpatient psychiatric treatment and stabilization. Continue Haldol long-acting injectable 100 mg every month with next dose to be given prior to discharge. Continue Haldol 5 mg twice a day as the recent increase and this does seem to have helped improve his thought processes. Discharge planning: Anticipate discharge tomorrow May 28, 2018: Patient was seen and examined on the unit by psychiatry and also visited by counselor. Psychotropic medications remained well tolerated. There was a good response to inpatient treatment plan noted by nursing and provider observations, and the patient reported improvements in mood, anxiety, and there was no evidence of any hallucinations, delusions, suicidality or homicidality at time of discharge. Psychiatric follow-up as arranged by counselor. I have counseled the patient to abstain from substances of abuse including cannabis and have counseled patient to return to the psychiatric emergency room for any concerning symptoms as part of a general safety plan. Weighing the acute, chronic, and protective factors and based on the available evidence, I mechanical design drafter that the patient does not presently meet criteria for involuntary psychiatric hospitalization. Suicide risk assessment on day of discharge suggest lower than imminent risk from mental illness. Patient is denying suicidal ideation. There is no evidence of impairment in reality construction. We will bolster protective factors by relinking the patient with outpatient psychiatric services. There is no evidence of self-care deficit at time of discharge. There is no evidence to support an involuntary hospitalization therefore discharge order placed per patient's request. Discharge medications include prescriptions for Prozac 20 mg 1 capsule/day #30 refill 0, hydroxyzine 50 mg every 8 hours as needed for anxiety #30 refill 0, Haldol 5 mg take 1 tablet by mouth twice a day #60 refill 0, Cogentin 1 g twice a day #60 refill 0 and the patient was provided his monthly Haldol Decanoate IM 100 mg x1 on the day of discharge; next dose due June 25, 2018. - Discharge Discharge Date: 05/28/18 Discharge Disposition: Home - Discharge Time > 30 minutes Mental Status Examination Appearance: Appropriate Consciousness: Alert Orientation: x4 Motor Activity: Normal gait Speech: Unremarkable Language: Adequate Fund of Knowledge: Adequate Attention and Concentration: Adequate Memory: Unremarkable Mood: Anxious Affect: Anxious Thought Process & Associations: Intact, Logical, Goal directed Thought Content: Appropriate, Obsessions (He describes intrusive thoughts that are irrational and illogical) Hallucination Type: None (Denies any this morning) Delusion Type: None Suicidal Ideation: No Homicidal Ideation: No Insight: Fair Judgment: Impulsive Discharge/Advance Care Plan - Results Vital Signs: Last Vital Signs Temp 98.4 F 05/28/18 06:23 Pulse 90 05/28/18 06:23 Resp 18 05/28/18 06:23 BP 138/90 05/28/18 06:23 Pulse Ox 96 05/28/18 06:23 Lab Results: Laboratory Results TSH 0.474 uIU/mL (0.358-3.740) 05/17/18 13:45 Summary of Procedures: None ordered Imaging: ITS Impressions Chest X-Ray 05/21/18 00:00 CONCLUSION: 1. No acute cardiopulmonary disease. Pending Results: None - Medications Number of antipsychotic medications at discharge: 1 - Discharge Care Plan Goals to Promote Your Health: * To prevent worsening of your condition and complications * To maintain your health at the optimal level Directions to Meet Your Goals: Take your medications as prescribed Follow your dietary instruction Follow activity as directed Keep your appointments as scheduled Take your immunizations and boosters as scheduled If your symptoms worsen call your PCP, if no PCP go to Urgent Care Center or Emergency Room For / questions related to your inpatient stay or results of tests pending at discharge, please contact Dr. Naun Cummings MD at Smoking is Dangerous to Your Health. Avoid second hand smoking
== END 2018-05-28 10:45 | disposition home or self-care (01) | DRG 885 ==
LOC: NEPD 13:15 → NEDA 05-18 17:54 → H270 05-18 19:35 → NEDA 05-18 19:47 → H270 05-27 17:46
PROVIDERS: ADMIT Psychiatry & Neurology Psychiatry; ATTEND Psychiatry & Neurology Psychiatry
CPT/HCPCS: 71010; 71045; 80053; 80307; 83735; 84443; 85025; 90791; 99285; J1631; Q0163